=== PATIENT | female | born 2000 | race Caucasian/White ===

== ENCOUNTER 2020-08-05 22:31 | Emergency (ER) | payer OTHER ==
[~2020-08-05] VITALS: Ht 175.3 cm; Wt 101.2 kg
== END 2020-08-05 23:19 | disposition home or self-care (01) ==
LOC: ED 22:31
DX: S00.03XA Contusion of scalp, initial encounter (principal); S00.83XA Contusion of other part of head, initial encounter; Y04.8XXA Assault by other bodily force, initial encounter; F17.200 Nicotine dependence, unspecified, uncomplicated; Z88.8 Allergy status to other drugs, medicaments and biological substances; Z88.1 Allergy status to other antibiotic agents; Z91.040 Latex allergy status; Z91.018 Allergy to other foods
CPT/HCPCS: 99283

== ENCOUNTER 2020-08-23 22:51 | Emergency (ER) | payer OTHER ==
[~2020-08-23] VITALS: Ht 175.3 cm; Wt 101.2 kg
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
[2020-08-23] MEDS ORDERED: FLUOXETINE HCL20 M1 (23:03)
[2020-08-23] MEDS ORDERED: OXCARBAZEPINE300 MG PO (23:03)
[2020-08-23] MEDS ORDERED: GUANFACINE HCL E3 MG PO (23:03)
== END 2020-08-24 00:26 | disposition home or self-care (01) ==
LOC: ED 22:51
DX: N93.9 Abnormal uterine and vaginal bleeding, unspecified (principal); F17.200 Nicotine dependence, unspecified, uncomplicated; Z88.1 Allergy status to other antibiotic agents; Z88.8 Allergy status to other drugs, medicaments and biological substances; Z91.040 Latex allergy status; Z88.6 Allergy status to analgesic agent; Z91.018 Allergy to other foods; Z79.899 Other long term (current) drug therapy
CPT/HCPCS: 84703; 85014; 85018; 99284

== ENCOUNTER 2020-11-17 17:53 | Emergency (ER) | payer OTHER ==
[~2020-11-17] VITALS: Ht 175.3 cm; Wt 106.1 kg
[~2020-11-17 17:53] MED LIST: FLUOXETINE HCL20 M1; GUANFACINE HCL E3 MG PO; OXCARBAZEPINE300 MG PO
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
[2020-11-17] MEDS ORDERED: SYNTHROID100 MCG PO (20:23)
[2020-11-17] MEDS ORDERED: CETIRIZINE HCL10 MG PO (21:14)
[2020-11-17] MEDS ORDERED: HYDROXYZINE HCL25 MG PO (21:14)
== END 2020-11-17 21:30 | disposition home or self-care (01) ==
LOC: ED 17:53
DX: S40.862A Insect bite (nonvenomous) of left upper arm, initial encounter (principal); S40.861A Insect bite (nonvenomous) of right upper arm, initial encounter; S80.862A Insect bite (nonvenomous), left lower leg, initial encounter; S80.861A Insect bite (nonvenomous), right lower leg, initial encounter; F17.200 Nicotine dependence, unspecified, uncomplicated; Z88.1 Allergy status to other antibiotic agents; Z88.8 Allergy status to other drugs, medicaments and biological substances; Z91.040 Latex allergy status; Z79.899 Other long term (current) drug therapy; Z91.018 Allergy to other foods; W57.XXXA Bitten or stung by nonvenomous insect and other nonvenomous arthropods, initial encounter
CPT/HCPCS: 99282

== ENCOUNTER 2022-01-12 23:29 | Emergency (ER) | payer OTHER ==
[~2022-01-12] VITALS: Ht 175.3 cm; Wt 106.3 kg
[~2022-01-12 23:29] MED LIST changes: +CETIRIZINE HCL10 MG PO; +HYDROXYZINE HCL25 MG PO; +SYNTHROID100 MCG PO
--- OUTSIDE RECORDS SUMMARY | 2022-01-12 23:37 | XMS ---
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 Candy VISIT COUNT (12 MO.) Jadyn Campos TOTAL 6 NOTE: Visits indicate total known visits. ED/C VISIT TRACKING (12 MO.) 01/12/2022 23:29 ARTURO Wilson TYPE: Emergency COMPLAINT: - SPIDER BITE 11/22/2021 01:27 [facility] TYPE: Emergency DIAGNOSES: - Allergic Reaction - Allergy, unspecified, initial encounter - facial swelling skin irritation allergic reaction unknown 09/17/2021 21:23 [facility] TYPE: Emergency DIAGNOSES: - Flank Pain - Skin Problem - left flank pain skin irritation - Allergy, unspecified, initial encounter 05/31/2021 14:12 [facility] TYPE: Emergency DIAGNOSES: - Rash;Worsening Symptoms - Urticaria, unspecified - Skin Problem 05/28/2021 16:24 [facility] TYPE: Emergency DIAGNOSES: - Right arm skin complaint - Dermatitis, unspecified - Urticaria, unspecified - Skin Irritation 03/22/2021 18:45 [facility] TYPE: Emergency DIAGNOSES: - Acute frontal sinusitis, unspecified - Nasal Congestion - Congestion;Facial Pain INPATIENT VISIT TRACKING (12 MO.) No inpatient visits to display in this time frame [id number]
[2022-01-12] MEDS ORDERED: CEPHALEXIN500 MG PO (23:51)
== END 2022-01-13 00:05 | disposition home or self-care (01) ==
LOC: ED 23:29
DX: S70.361A Insect bite (nonvenomous), right thigh, initial encounter (principal); L03.115 Cellulitis of right lower limb; F17.200 Nicotine dependence, unspecified, uncomplicated; Z88.1 Allergy status to other antibiotic agents; Z91.018 Allergy to other foods; Z88.6 Allergy status to analgesic agent; Z91.040 Latex allergy status; Z91.048 Other nonmedicinal substance allergy status; Z79.899 Other long term (current) drug therapy; W57.XXXA Bitten or stung by nonvenomous insect and other nonvenomous arthropods, initial encounter
CPT/HCPCS: 99283; A9270

== ENCOUNTER 2022-04-09 17:23 | Emergency (ER) | payer OTHER ==
[~2022-04-09] VITALS: Ht 175.3 cm; Wt 99.9 kg
[~2022-04-09 17:23] MED LIST changes: +CEPHALEXIN500 MG PO
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
[2022-04-09] MEDS ORDERED: HYDROCODON-ACE1 EA10 PO (21:44)
== END 2022-04-09 22:12 | disposition home or self-care (01) ==
LOC: ED 17:23
DX: S00.83XA Contusion of other part of head, initial encounter (principal); F17.200 Nicotine dependence, unspecified, uncomplicated; Z88.1 Allergy status to other antibiotic agents; Z88.6 Allergy status to analgesic agent; Z91.040 Latex allergy status; Z91.018 Allergy to other foods; Y04.8XXA Assault by other bodily force, initial encounter
CPT/HCPCS: 70450; 70486; 99284-25; A9270